=== PATIENT | female | born 1960 | race Caucasian/White ===

== ENCOUNTER 2020-05-25 06:59 | Emergency (ER) | payer OTHER ==
[~2020-05-25] VITALS: Ht 167.6 cm; Wt 71.0 kg
[2020-05-25 07:46] LABS: HEMATOCRIT 41.5 % (37.0-47.0); HEMOGLOBIN 13.5 g/dl (12.0-16.0); IMMATURE GRANULOCYTES 0.1 % (0.0-5.0); MEAN CELL VOLUME 87.6 fL CALC (80.0-100.0); MEAN CORPUSCULAR HGB 28.5 pG CALC (26.0-32.0); MEAN CORPUSCULAR HGB CONC 32.5 g/dL CAL (32.0-36.0); NEUT# 7.11 thou/uL (2.00-7.15); RED BLOOD COUNT 4.74 mill/uL (4.20-5.60); RED CELL DISTRI WIDTH 13.6 % (11.5-15.5)
[2020-05-25 07:49] LABS: URINE BILIRUBIN - DIPSTICK NEGATIVE (NEGATIVE); URINE BLOOD DIPSTICK NEGATIVE (NEGATIVE); URINE COLOR YELLOW; URINE GLUCOSE - DIPSTICK NEGATIVE (NEGATIVE); URINE KETONE 15 mg/dL (NEGATIVE); URINE LEUK ESTERASE NEGATIVE (NEGATIVE); URINE NITRITE - DIPSTICK NEGATIVE (Negative); URINE PH 7.5 (4.5-8.0); URINE PROTEIN - DIPSTICK TRACE mg/dL (NEG-TRACE); URINE UROBILINOGEN - DIPSTICK 0.2 E.U./dL (0.2)
[2020-05-25 08:01] LABS: ALBUMIN 4.8 g/dL (3.2-5.0); ALKALINE PHOSPHATASE 84 u/l (38-126); AMYLASE 41 u/l (30-110); ANION GAP 12 (6-22 (CALC)); BUN 18 mg/dL (8-23); BUN/CREATININE RATIO 24 (12-20 (CALC)); CARBON DIOXIDE 25 mmol/l (22-30); CHLORIDE 105 mmol/l (95-108); CREATININE 0.7 mg/dL (0.5-1.0); GFR > 60 ML/MIN (>=60 (CALC)); GFR FOR AFR.AMER. > 60 ML/MIN (>=60 (CALC)); LIPASE 90 u/l (23-300); POTASSIUM 3.8 mmol/l (3.5-5.1); SGOT/AST 30 u/l (9-36); SODIUM 138 mmol/l (137-146); TOTAL PROTEIN 7.8 g/dL (6.3-8.2)
[2020-05-25] MEDS ORDERED: PHENERGAN25 MG/TAB PO (08:38)
[2020-05-25 08:44] VITALS: BP 115/58
[2020-05-25] MEDS ORDERED: MELOXICAM15 MG PO (08:45)
[2020-05-25] MEDS ORDERED: ARMOUR THYRO90 MG PO (08:45)
[2020-05-25] MEDS ORDERED: TRAZODONE50 MG PO (08:46)
== END 2020-05-25 09:24 | disposition home or self-care (01) | DRG 392 ==
LOC: ED 06:59
DX: R11.2 Nausea with vomiting, unspecified (principal); R19.7 Diarrhea, unspecified; Z20.828 Contact with and (suspected) exposure to other viral communicable diseases

== ENCOUNTER 2022-01-04 22:06 | Emergency (ER) | payer OTHER ==
[~2022-01-04] VITALS: Ht 167.6 cm; Wt 73.0 kg
[~2022-01-04 22:06] MED LIST: ARMOUR THYRO90 MG PO; MELOXICAM15 MG PO; PHENERGAN25 MG/TAB PO; TRAZODONE50 MG PO
[2022-01-04] MEDS ORDERED: KEFLEX500 MG PO (22:29)
[2022-01-04 22:34] VITALS: BP 119/63
== END 2022-01-04 22:40 | disposition home or self-care (01) | DRG 605 ==
LOC: ED 22:06
PROC: 0HQGXZZ Repair Left Hand Skin, External Approach (ICD-10-PCS; principal; 2022-01-04)
DX: S61.412A Laceration without foreign body of left hand, initial encounter (principal); W27.2XXA Contact with scissors, initial encounter; Y93.G1 Activity, food preparation and clean up; Y92.009 Unspecified place in unspecified non-institutional (private) residence as the place of occurrence of the external cause

== ENCOUNTER 2022-05-18 06:45 | Emergency (ER) | payer OTHER ==
[~2022-05-18] VITALS: Ht 167.6 cm; Wt 65.0 kg
[~2022-05-18 06:45] MED LIST changes: +KEFLEX500 MG PO
[2022-05-18 07:39] LABS: HEMATOCRIT 39.7 % (37.0-47.0); HEMOGLOBIN 13.3 g/dl (12.0-16.0); IMMATURE GRANULOCYTES 0.6 % (0.0-5.0); MEAN CELL VOLUME 89.4 fL CALC (80.0-100.0); MEAN CORPUSCULAR HGB CONC 33.5 g/dL CAL (32.0-36.0); NEUT# 5.33 thou/uL (2.00-7.15); RED BLOOD COUNT 4.44 mill/uL (4.20-5.60); RED CELL DISTRI WIDTH 12.7 % (11.5-15.5)
[2022-05-18 07:55] LABS: ALKALINE PHOSPHATASE 63 u/l (38-126); BUN 19 mg/dL (8-23); BUN/CREATININE RATIO 29 (12-20 (CALC)); CARBON DIOXIDE 25 mmol/l (22-30); CHLORIDE 107 mmol/l (95-108); CREATININE 0.7 mg/dL (0.5-1.0); GFR FOR AFR.AMER. > 60 ML/MIN (>=60 (CALC)); GFR OTHER RACES > 60 ML/MIN (>=60 (CALC)); SGOT/AST 30 u/l (9-36); SODIUM 137 mmol/l (137-146); TOTAL PROTEIN 7.2 g/dL (6.3-8.2)
[2022-05-18 07:58] LABS: ANION GAP 8 (6-22 (CALC)); BILIRUBIN, TOTAL 1.3 mg/dL (0.0-1.4); POTASSIUM 3.4 mmol/l (3.5-5.1)
[2022-05-18] MEDS ORDERED: ZOFRAN4 MG/TAB PO (08:31)
[2022-05-18] MEDS ORDERED: PHENERGAN25 MG RE (08:31)
[2022-05-18] MEDS ORDERED: ZPAK PO (08:31)
[2022-05-18 09:33] VITALS: BP 113/60
== END 2022-05-18 09:33 | disposition home or self-care (01) | DRG 179 ==
LOC: ED 06:45
PROVIDERS: Family Medicine
DX: U07.1 COVID-19 (principal); R11.2 Nausea with vomiting, unspecified; R05.9 Cough, unspecified; E87.6 Hypokalemia

== ENCOUNTER 2022-05-25 07:23 | Emergency (ER) | payer OTHER ==
[~2022-05-25] VITALS: Ht 167.6 cm; Wt 65.5 kg
[~2022-05-25 07:23] MED LIST changes: +PHENERGAN25 MG RE; +ZOFRAN4 MG/TAB PO; +ZPAK PO
[2022-05-25 07:33] VITALS: BP 108/71
[2022-05-25 07:45] VITALS: BP 107/68
[2022-05-25 08:02] VITALS: BP 114/73
[2022-05-25 08:03] LABS: HEMOGLOBIN 12.1 g/dl (12.0-16.0); IMMATURE GRANULOCYTES 0.1 % (0.0-5.0); MEAN CELL VOLUME 91.4 fL CALC (80.0-100.0); MEAN CORPUSCULAR HGB 29.9 pG CALC (26.0-32.0); MEAN CORPUSCULAR HGB CONC 32.7 g/dL CAL (32.0-36.0); NEUT# 7.41 thou/uL (2.00-7.15); RED BLOOD COUNT 4.05 mill/uL (4.20-5.60)
[2022-05-25 08:14] LABS: ALBUMIN 4.1 g/dL (3.2-5.0); ALKALINE PHOSPHATASE 58 u/l (38-126); ANION GAP 8 (6-22 (CALC)); BILIRUBIN, TOTAL 1.6 mg/dL (0.0-1.4); BUN 13 mg/dL (8-23); BUN/CREATININE RATIO 19 (12-20 (CALC)); CARBON DIOXIDE 28 mmol/l (22-30); CHLORIDE 107 mmol/l (95-108); CREATININE 0.7 mg/dL (0.5-1.0); GFR FOR AFR.AMER. > 60 ML/MIN (>=60 (CALC)); GFR OTHER RACES > 60 ML/MIN (>=60 (CALC)); LIPASE 40 u/l (23-300); SGOT/AST 17 u/l (9-36); SODIUM 139 mmol/l (137-146); TOTAL PROTEIN 6.8 g/dL (6.3-8.2)
[2022-05-25 08:15] VITALS: BP 105/65
[2022-05-25 08:19] LABS: POTASSIUM 4.1 mmol/l (3.5-5.1)
[2022-05-25 08:32] LABS: URINE BILIRUBIN - DIPSTICK NEGATIVE (NEGATIVE); URINE BLOOD DIPSTICK NEGATIVE (NEGATIVE); URINE COLOR YELLOW; URINE GLUCOSE - DIPSTICK NEGATIVE (NEGATIVE); URINE KETONE NEGATIVE (NEGATIVE); URINE LEUK ESTERASE NEGATIVE (NEGATIVE); URINE PH 8.5 (4.5-8.0); URINE PROTEIN - DIPSTICK NEGATIVE (NEG-TRACE); URINE SPECIFIC GRAVITY 1.015; URINE UROBILINOGEN - DIPSTICK 0.2 E.U./dL (0.2)
[2022-05-25 08:33] LABS: URINE NITRITE - DIPSTICK NEGATIVE (Negative)
[2022-05-26] MEDS ORDERED: ESTRADIOL10 MCG VA (12:04)
== END 2022-05-25 09:21 | disposition home or self-care (01) | DRG 392 ==
LOC: ED 07:23
PROVIDERS: Family Medicine
DX: K59.00 Constipation, unspecified (principal)
CPT/HCPCS: Q9967

== ENCOUNTER 2022-05-25 20:47 | Observation (INO) | payer OTHER ==
[~2022-05-25] VITALS: Ht 167.6 cm; Wt 66.0 kg
[2022-05-25 21:00] VITALS: BP 137/78
[2022-05-25 21:34] LABS: HEMATOCRIT 37.5 % (37.0-47.0); HEMOGLOBIN 12.3 g/dl (12.0-16.0); IMMATURE GRANULOCYTES 0.1 % (0.0-5.0); MEAN CORPUSCULAR HGB 29.9 pG CALC (26.0-32.0); MEAN CORPUSCULAR HGB CONC 32.8 g/dL CAL (32.0-36.0); NEUT# 8.33 thou/uL (2.00-7.15); RED BLOOD COUNT 4.12 mill/uL (4.20-5.60); RED CELL DISTRI WIDTH 13.1 % (11.5-15.5)
[2022-05-25 21:49] LABS: ALBUMIN 4.1 g/dL (3.2-5.0); ALKALINE PHOSPHATASE 64 u/l (38-126); ANION GAP 9 (6-22 (CALC)); BILIRUBIN, TOTAL 1.2 mg/dL (0.0-1.4); BUN 16 mg/dL (8-23); BUN/CREATININE RATIO 20 (12-20 (CALC)); CARBON DIOXIDE 27 mmol/l (22-30); CHLORIDE 107 mmol/l (95-108); CREATININE 0.8 mg/dL (0.5-1.0); GFR FOR AFR.AMER. > 60 ML/MIN (>=60 (CALC)); GFR OTHER RACES > 60 ML/MIN (>=60 (CALC)); POTASSIUM 3.8 mmol/l (3.5-5.1); SGOT/AST 19 u/l (9-36); SODIUM 139 mmol/l (137-146); TOTAL PROTEIN 7.2 g/dL (6.3-8.2)
--- NOTE | 2022-05-25 22:25 | NUR ---
PT CAME IN - INITIAL CARE AND TREATMENT BY NESTOR LUCIANO. PT GIVEN MEDS, FOLLOWING TORADOL, PT STILL REPORTS 6/10 PAIN SCALE. XRAY JUST COMPLETED, PT IN RESTROOM, WILL CONTINUE TO MONITOR WHILE AWAITING RESULTS.
--- NOTE | 2022-05-25 22:59 | NUR ---
PT REPORTED 3/10 PAIN FOLLOWING THE MORPHINE. AWAITING ROOM ASSIGNMENT - NOTIFIED PT, WILL CONTINUE TO MONITOR.
--- NOTE | 2022-05-25 23:08 | NUR ---
ICE [employer]IPS PROVIDED PER PT'S REQUEST
--- NOTE | 2022-05-25 23:36 | NUR ---
REPORT CALLED TO [facility] - NURSE AVINASH. PT BEING TRANSFERRED UPSTAIRS VIA WHEELCHAIR BY ZHANE BAEZ. PT STABLE.
--- NOTE | 2022-05-25 23:39 | NUR ---
PATIENT TRASNPORTED VIA WHEELCHAIR, REPORT GIVEN BY ED NURSE YOMI, C/O ABDOMINAL PAINA DN CONSTIPATION, LAST DOCUMENTED BM 05/22 " wednesday", PATIENT HAD TAKEN MAD CITRATE AND ENEMA NO RELIEF. PATIENT WAS ORIENTED TO ROOM AND CALL LIGHT SYSTEM, DIET REINFORCED CURRENTLY ON CLEAR LIQUID DIET, VIATL SIGNS TAKEN, PATIENT ON ISOLATION FOPR COVID 19, BREATHING UNLABORED CALL LIGHT IN REACH./
--- NOTE | 2022-05-26 01:16 | NUR ---
SOAP TOM ENEMA DONE AT THIS TIME, PATIENT TOLERATED PROCEDURE, PATIENT TO BED SIDE COMODE, NO BM NOTED YET JUST ENEMA SOLUTION.
[2022-05-26 01:50] VITALS: BP 120/59
--- NOTE | 2022-05-26 02:55 | NUR ---
ENEMA CONTINUED AT THSI TIME, PATIENT STILL HAVING ABDOMINAL CRAMPING.
[2022-05-26 05:00] VITALS: BP 134/75
[2022-05-26 05:24] LABS: HEMATOCRIT 37.5 % (37.0-47.0); HEMOGLOBIN 12.5 g/dl (12.0-16.0); MEAN CELL VOLUME 88.9 fL CALC (80.0-100.0); MEAN CORPUSCULAR HGB 29.6 pG CALC (26.0-32.0); MEAN CORPUSCULAR HGB CONC 33.3 g/dL CAL (32.0-36.0); RED BLOOD COUNT 4.22 mill/uL (4.20-5.60); RED CELL DISTRI WIDTH 12.9 % (11.5-15.5)
[2022-05-26 05:34] LABS: ANION GAP 9 (6-22 (CALC)); BUN 19 mg/dL (8-23); BUN/CREATININE RATIO 29 (12-20 (CALC)); CARBON DIOXIDE 26 mmol/l (22-30); CHLORIDE 106 mmol/l (95-108); CREATININE 0.7 mg/dL (0.5-1.0); GFR FOR AFR.AMER. > 60 ML/MIN (>=60 (CALC)); GFR OTHER RACES > 60 ML/MIN (>=60 (CALC)); MAGNESIUM 3.4 mg/dL (1.6-2.3); POTASSIUM 3.9 mmol/l (3.5-5.1); SODIUM 137 mmol/l (137-146)
--- NOTE | 2022-05-26 05:40 | NUR ---
PATIENT RESTING IN BED, SIDE LYING POSITION, NOT IN DISTRESS CALL LIGHT IN REACH.
--- NOTE | 2022-05-26 06:36 | NUR ---
PRN BENTYL IM GIVEN FOR ABDOMINAL SPASM AND MOM GIVEN AT THIS TIME.
--- NOTE | 2022-05-26 07:00 | NUR ---
RECEIVE REPORT FROM GURJIT BAEZ.
[2022-05-26 07:27] VITALS: BP 112/58
[2022-05-26 08:00] VITALS: BP 112/58
--- NOTE | 2022-05-26 08:00 | NUR ---
PATIENT ALERT AND ORIENTED X3. VITAL SIGN STABLE AT THIS TIME. PATIENT RESTING IN BED PLEASENT. PATIENT IS EDUCATED ABOUD MEDICATIONS AN NURSING PLAN FOR TODAY. PATIENT REFER UNDERSTAND. FALL AND SAFETY PRECAUTIONS IN PLACE. CALL LIGHT IS WITHIN REACH.
[2022-05-26] MEDS ORDERED: ESTRADIOL10 MCG VA (12:04)
--- NOTE | 2022-05-26 12:23 | NUR ---
PATIENT AMBULATING WITH STAFF
--- NOTE | 2022-05-26 12:27 | NUR ---
PATIENT STABLE AT THIS TIME. RESTING IN BED ACCOMPANIED FOR FAMILY MEMBER.
[2022-05-26 15:26] VITALS: BP 102/62
--- NOTE | 2022-05-26 16:33 | NUR ---
PATIENT STABLE AT THIS TIME. RESTING IN BED
--- NOTE | 2022-05-26 19:30 | NUR ---
ALERT AND ORIENTED X4 ABDOMIN MILDLY DISTENDED NO NAUSEA AND TENDER ON PALPATION AT 3 OUT OF 10
[2022-05-26 19:48] VITALS: BP 90/53
--- NOTE | 2022-05-26 20:36 | NUR ---
COMPLAIN OF NAUSEA AND ABDOMIN CRAMPING TEMP 100.5 MEDICATED WITH TORADOL FOR RELEF OF FEVER AND PAIN
--- NOTE | 2022-05-26 21:27 | NUR ---
RESTING QUIETLY NO DISTRESS POSTURE RELAXED WILL CONTINUE TO MONITOR
--- NOTE | 2022-05-26 23:52 | NUR ---
PATIENT AWAKE AND ALERT CONTINUE TO COMPALAIN OF NAUSEA AND ABDOMINAL PAIN. WILL CONTINUE TO MONITOR
--- NOTE | 2022-05-27 03:46 | NUR ---
UP TO BSC VOIDED NÉSTOR URINE SMALL AMOUNT SOFT BROWN STOOL NOTED MEDICATED FOR COMPLAINT OF CRAMPING ABDOMINAL PAIN AND NAUSEA WITHOUT EMESIS. RESPIRATIONS EVEN AND UNLABORED.
[2022-05-27 04:21] VITALS: BP 95/43
[2022-05-27 06:05] LABS: HEMATOCRIT 31.6 % (37.0-47.0); HEMOGLOBIN 10.8 g/dl (12.0-16.0); MEAN CORPUSCULAR HGB 30.8 pG CALC (26.0-32.0); MEAN CORPUSCULAR HGB CONC 34.2 g/dL CAL (32.0-36.0); RED BLOOD COUNT 3.51 mill/uL (4.20-5.60); RED CELL DISTRI WIDTH 13.1 % (11.5-15.5)
[2022-05-27 06:46] LABS: ANION GAP 10 (6-22 (CALC)); BUN 21 mg/dL (8-23); BUN/CREATININE RATIO 31 (12-20 (CALC)); CARBON DIOXIDE 23 mmol/l (22-30); CHLORIDE 104 mmol/l (95-108); CREATININE 0.7 mg/dL (0.5-1.0); GFR FOR AFR.AMER. > 60 ML/MIN (>=60 (CALC)); GFR OTHER RACES > 60 ML/MIN (>=60 (CALC)); MAGNESIUM 2.8 mg/dL (1.6-2.3); POTASSIUM 3.7 mmol/l (3.5-5.1); SODIUM 134 mmol/l (137-146)
--- NOTE | 2022-05-27 07:00 | NUR ---
REPORT RECEIVE FROM HILARIO BAEZ.
[2022-05-27 07:23] VITALS: BP 95/53
[2022-05-27 08:00] VITALS: BP 95/53
--- NOTE | 2022-05-27 08:00 | NUR ---
PATIENT ALERT AND ORIENTED X3. PATIENT REFER NAUCEAS AND PAIN. MEDICATIONS DONE. PATIENT IS EDUCATED ABOUD MEDICATIONS AND NURSING PLAN FOR TODAY. PT DONT NOT WANT CONNECTED IV FLUID SHE REFER NEED GO TO THE BEDSIDE COMMON FRECUENLY. PT IS REEDUCATED ABOUD TREATMENT. SHE REFER UNDERSTAND.
--- NOTE | 2022-05-27 12:52 | NUR ---
PATIENT RESTING IN BED, STABLE AT THIS TIME. PT WITH DISCHARGED PLAN FOR TODAY
[2022-05-27] MEDS ORDERED: CIPROFLOXACN500 MG PO (14:34)
[2022-05-27] MEDS ORDERED: METRONIDAZOLE500 MG PO (14:35)
[2022-05-27] MEDS ORDERED: DICYCLOMINE HCL10 MG PO (14:36)
[2022-05-27] MEDS ORDERED: PERCOCET 5/325M1 TAB PO (14:36)
--- NOTE | 2022-05-27 14:50 | NUR ---
Discharge instructions given. Patient verbalizes understanding of same. Discharged in stable condition via Wheelchair to Home with *Other. All belongings sent with pt.
== END 2022-05-27 15:38 | disposition home or self-care (01) | DRG 391 ==
LOC: ED 20:47 → MS2 22:45
PROVIDERS: Family Medicine; ADMIT Hospitalist; ATTEND Hospitalist
DX: K57.32 Diverticulitis of large intestine without perforation or abscess without bleeding (principal); U07.1 COVID-19; K59.00 Constipation, unspecified; E03.9 Hypothyroidism, unspecified
CPT/HCPCS: G0378; J1650; Q9967; S0164

== ENCOUNTER 2022-05-29 13:46 | Inpatient (IN) | payer OTHER ==
[~2022-05-29] VITALS: Ht 167.6 cm; Wt 67.0 kg
[~2022-05-29 13:46] MED LIST changes: +CIPROFLOXACN500 MG PO; +DICYCLOMINE HCL10 MG PO; +ESTRADIOL10 MCG VA; +METRONIDAZOLE500 MG PO; +PERCOCET 5/325M1 TAB PO
[2022-05-29 14:18] VITALS: BP 111/62
[2022-05-29 18:40] VITALS: BP 126/75
[2022-05-29 18:57] VITALS: BP 126/75
[2022-05-30] VITALS (7 sets, daily range): BP systolic 108–137; BP diastolic 56–73
[2022-05-30 05:13] LABS: HEMATOCRIT 30.7 % (37.0-47.0); HEMOGLOBIN 10.4 g/dl (12.0-16.0); IMMATURE GRANULOCYTES 3.4 % (0.0-5.0); MEAN CELL VOLUME 88.5 fL CALC (80.0-100.0); MEAN CORPUSCULAR HGB CONC 33.9 g/dL CAL (32.0-36.0); NEUT# 2.77 thou/uL (2.00-7.15); RED BLOOD COUNT 3.47 mill/uL (4.20-5.60)
[2022-05-30 05:28] LABS: ANION GAP 9 (6-22 (CALC)); BUN 6 mg/dL (8-23); BUN/CREATININE RATIO 8 (12-20 (CALC)); CARBON DIOXIDE 25 mmol/l (22-30); CHLORIDE 106 mmol/l (95-108); CREATININE 0.7 mg/dL (0.5-1.0); GFR FOR AFR.AMER. > 60 ML/MIN (>=60 (CALC)); GFR OTHER RACES > 60 ML/MIN (>=60 (CALC)); POTASSIUM 3.5 mmol/l (3.5-5.1); SODIUM 136 mmol/l (137-146)
[2022-05-30] MEDS ORDERED: MELOXICAM7.5 MG PO (13:27)
[2022-05-31 03:46] VITALS: BP 108/63
[2022-05-31 04:00] VITALS: BP 108/63
[2022-05-31 05:18] LABS: HEMATOCRIT 28.1 % (37.0-47.0); HEMOGLOBIN 9.6 g/dl (12.0-16.0); MEAN CELL VOLUME 88.4 fL CALC (80.0-100.0); MEAN CORPUSCULAR HGB 30.2 pG CALC (26.0-32.0); MEAN CORPUSCULAR HGB CONC 34.2 g/dL CAL (32.0-36.0); RED BLOOD COUNT 3.18 mill/uL (4.20-5.60); RED CELL DISTRI WIDTH 12.9 % (11.5-15.5)
[2022-05-31 05:32] LABS: ANION GAP 9 (6-22 (CALC)); BUN 3 mg/dL (8-23); BUN/CREATININE RATIO 5 (12-20 (CALC)); CARBON DIOXIDE 25 mmol/l (22-30); CHLORIDE 107 mmol/l (95-108); CREATININE 0.6 mg/dL (0.5-1.0); GFR FOR AFR.AMER. > 60 ML/MIN (>=60 (CALC)); GFR OTHER RACES > 60 ML/MIN (>=60 (CALC)); SODIUM 137 mmol/l (137-146)
[2022-05-31 05:41] LABS: MAGNESIUM 1.9 mg/dL (1.6-2.3)
[2022-05-31 06:45] VITALS: BP 124/59
[2022-05-31 14:45] VITALS: BP 105/60
[2022-05-31 18:59] VITALS: BP 105/70
[2022-06-01 04:44] VITALS: BP 120/65
[2022-06-01 05:32] LABS: HEMATOCRIT 30.8 % (37.0-47.0); HEMOGLOBIN 10.3 g/dl (12.0-16.0); MEAN CELL VOLUME 89.8 fL CALC (80.0-100.0); MEAN CORPUSCULAR HGB CONC 33.4 g/dL CAL (32.0-36.0); RED BLOOD COUNT 3.43 mill/uL (4.20-5.60); RED CELL DISTRI WIDTH 13.2 % (11.5-15.5)
[2022-06-01 05:44] LABS: ANION GAP 8 (6-22 (CALC)); BUN 2 mg/dL (8-23); BUN/CREATININE RATIO 3 (12-20 (CALC)); CARBON DIOXIDE 27 mmol/l (22-30); CHLORIDE 107 mmol/l (95-108); CREATININE 0.7 mg/dL (0.5-1.0); GFR FOR AFR.AMER. > 60 ML/MIN (>=60 (CALC)); GFR OTHER RACES > 60 ML/MIN (>=60 (CALC)); MAGNESIUM 1.8 mg/dL (1.6-2.3); POTASSIUM 3.8 mmol/l (3.5-5.1); SODIUM 138 mmol/l (137-146)
[2022-06-01 07:16] VITALS: BP 130/66
[2022-06-01 20:42] VITALS: BP 100/58
[2022-06-02] VITALS (7 sets, daily range): BP systolic 103–125; BP diastolic 60–79
[2022-06-03 04:31] LABS: HEMATOCRIT 32.1 % (37.0-47.0); HEMOGLOBIN 10.7 g/dl (12.0-16.0); IMMATURE GRANULOCYTES 3.7 % (0.0-5.0); MEAN CELL VOLUME 88.9 fL CALC (80.0-100.0); MEAN CORPUSCULAR HGB 29.6 pG CALC (26.0-32.0); MEAN CORPUSCULAR HGB CONC 33.3 g/dL CAL (32.0-36.0); NEUT# 4.06 thou/uL (2.00-7.15); RED BLOOD COUNT 3.61 mill/uL (4.20-5.60); RED CELL DISTRI WIDTH 13.8 % (11.5-15.5)
[2022-06-03 04:33] VITALS: BP 123/70
[2022-06-03 04:45] LABS: ANION GAP 8 (6-22 (CALC)); CARBON DIOXIDE 27 mmol/l (22-30); CHLORIDE 108 mmol/l (95-108); CREATININE 0.7 mg/dL (0.5-1.0); GFR FOR AFR.AMER. > 60 ML/MIN (>=60 (CALC)); GFR OTHER RACES > 60 ML/MIN (>=60 (CALC)); POTASSIUM 3.6 mmol/l (3.5-5.1); SODIUM 139 mmol/l (137-146)
[2022-06-03 04:58] LABS: BUN 2 mg/dL (8-23); BUN/CREATININE RATIO 3 (12-20 (CALC))
[2022-06-03 10:51] LABS: C. DIFFICILE TOXIN A&B NEGATIVE (NEGATIVE)
[2022-06-03 18:54] VITALS: BP 95/53
[2022-06-03 19:08] VITALS: BP 95/53
[2022-06-04 03:30] VITALS: BP 119/70
[2022-06-04 04:16] VITALS: BP 119/70
[2022-06-04 04:56] LABS: HEMATOCRIT 30.8 % (37.0-47.0); HEMOGLOBIN 10.1 g/dl (12.0-16.0); MEAN CELL VOLUME 89.5 fL CALC (80.0-100.0); MEAN CORPUSCULAR HGB 29.4 pG CALC (26.0-32.0); MEAN CORPUSCULAR HGB CONC 32.8 g/dL CAL (32.0-36.0); RED BLOOD COUNT 3.44 mill/uL (4.20-5.60); RED CELL DISTRI WIDTH 13.9 % (11.5-15.5)
[2022-06-04 05:08] LABS: ANION GAP 7 (6-22 (CALC)); BUN 2 mg/dL (8-23); BUN/CREATININE RATIO 3 (12-20 (CALC)); CARBON DIOXIDE 27 mmol/l (22-30); CHLORIDE 110 mmol/l (95-108); CREATININE 0.7 mg/dL (0.5-1.0); GFR FOR AFR.AMER. > 60 ML/MIN (>=60 (CALC)); GFR OTHER RACES > 60 ML/MIN (>=60 (CALC)); MAGNESIUM 2.1 mg/dL (1.6-2.3); POTASSIUM 3.7 mmol/l (3.5-5.1); SODIUM 140 mmol/l (137-146)
[2022-06-04 06:05] VITALS: BP 101/57
[2022-06-04] MEDS ORDERED: AMOX/K CLAV875 M1 PO (10:17)
[2022-06-08] MEDS ORDERED: ONDANSETRON4 MG PO (12:11)
[2022-06-08] MEDS ORDERED: METRONIDAZOLE250 MG PO (12:11)
== END 2022-06-04 12:06 | disposition home or self-care (01) | DRG 385 ==
LOC: MS2 13:46
PROVIDERS: Hospitalist; ADMIT Surgery; ATTEND Surgery
PROC: 0DBL8ZX Excision of Transverse Colon, Via Natural or Artificial Opening Endoscopic, Diagnostic (ICD-10-PCS; principal; 2022-06-01)
DX: K50.118 Crohn's disease of large intestine with other complication (principal); U07.1 COVID-19; K57.32 Diverticulitis of large intestine without perforation or abscess without bleeding; D64.9 Anemia, unspecified; E03.9 Hypothyroidism, unspecified; G47.00 Insomnia, unspecified
CPT/HCPCS: J1650

== ENCOUNTER 2022-08-04 06:51 | Day surgery (SDC) | payer OTHER ==
[~2022-08-04] VITALS: Ht 167.6 cm; Wt 60.8 kg
[~2022-08-04 06:51] MED LIST changes: +AMOX/K CLAV875 M1 PO; +CALCIUM600 M1 PO; +DOCUSATE CAL240 MG PO; +EFFEXOR XR37.5 MG PO; +GINGER ROOT550 MG PO; +K2 PLUS D31 TAB PO; +MAGNESIUM250 M1 PO; +MAXALT10 MG PO; +MELOXICAM7.5 MG PO; +METRONIDAZOLE250 MG PO; +MULTI VIT PO; +ONDANSETRON4 MG PO; +PROTONICS PO; +TYLENOL500 MG PO; +ZINC50 M1 PO
[2022-08-04 09:03] VITALS: BP 92/60
== END 2022-08-04 08:58 | disposition home or self-care (01) | DRG 392 ==
LOC: ORM 06:51 → ENDO 06:51 → ORM 08:00 → ENDO 08:58
PROVIDERS: ATTEND Surgery
PROC: 0DJD8ZZ Inspection of Lower Intestinal Tract, Via Natural or Artificial Opening Endoscopic (ICD-10-PCS; principal; 2022-08-04)
DX: K57.30 Diverticulosis of large intestine without perforation or abscess without bleeding (principal); I10 Essential (primary) hypertension; E11.9 Type 2 diabetes mellitus without complications

== ENCOUNTER 2023-02-17 06:34 | Day surgery (SDC) | payer OTHER ==
[~2023-02-17] VITALS: Ht 167.6 cm; Wt 58.5 kg
[2023-02-17 12:52] VITALS: BP 101/65
== END 2023-02-17 10:47 | disposition home or self-care (01) | DRG 93 ==
LOC: ORM 06:34
PROVIDERS: ATTEND Physical Medicine & Rehabilitation
DX: G89.4 Chronic pain syndrome (principal); M17.0 Bilateral primary osteoarthritis of knee; M62.838 Other muscle spasm; M54.16 Radiculopathy, lumbar region
CPT/HCPCS: J1100; Q9967

== ENCOUNTER 2023-12-08 06:30 | Day surgery (SDC) | payer OTHER ==
[~2023-12-08] VITALS: Ht 167.6 cm; Wt 61.2 kg
[~2023-12-08 06:30] MED LIST changes: +FLEXERIL5 M1 PO; +MELOXICAM10 MG PO; +TOPAMAX50 M1 PO
[2023-12-08 09:53] VITALS: BP 113/63
== END 2023-12-08 09:20 | disposition home or self-care (01) | DRG 552 ==
LOC: ORM 06:30
PROVIDERS: ATTEND Student in an Organized Health Care Education/Training Program
DX: M46.1 Sacroiliitis, not elsewhere classified (principal); G89.4 Chronic pain syndrome; M53.3 Sacrococcygeal disorders, not elsewhere classified

== ENCOUNTER 2023-12-15 06:55 | Day surgery (SDC) | payer OTHER ==
[~2023-12-15] VITALS: Ht 167.6 cm; Wt 61.2 kg
[2023-12-15 10:54] VITALS: BP 105/65
== END 2023-12-15 08:30 | disposition home or self-care (01) | DRG 93 ==
LOC: ORM 06:55
PROVIDERS: ATTEND Student in an Organized Health Care Education/Training Program
DX: G89.4 Chronic pain syndrome (principal); M17.0 Bilateral primary osteoarthritis of knee; M62.838 Other muscle spasm; M54.16 Radiculopathy, lumbar region
CPT/HCPCS: J7325; Q9966

== ENCOUNTER 2024-01-12 06:55 | Day surgery (SDC) | payer OTHER ==
[~2024-01-12] VITALS: Ht 167.6 cm; Wt 61.7 kg
[2024-01-12] MEDS ORDERED: SODIUM CHLORIDE 0.9% 10 ML SYR ONE (08:03)
[2024-01-12] MEDS ORDERED: PERCOCET1 TA2 PO (08:36)
[2024-01-12] MEDS ORDERED: TIZANIDINE4 MG PO (08:41)
[2024-01-12] MEDS ORDERED: LIDOCAINE MPF 1% (10 MG/ML) 5 ML VIAL ONE (10:23)
[2024-01-12] MEDS ORDERED: BUPIVACAINE HCL PF 0.5 % 50 MG/10 ML SDV ONE (10:24)
[2024-01-12 10:38] VITALS: BP 123/55
== END 2024-01-12 10:30 | disposition home or self-care (01) | DRG 93 ==
LOC: ORM 06:55
PROVIDERS: ATTEND Student in an Organized Health Care Education/Training Program
DX: G89.4 Chronic pain syndrome (principal); M17.0 Bilateral primary osteoarthritis of knee; M54.16 Radiculopathy, lumbar region; M46.1 Sacroiliitis, not elsewhere classified

== ENCOUNTER 2024-06-21 05:22 | Emergency (ER) | payer OTHER ==
[~2024-06-21] VITALS: Ht 167.6 cm; Wt 65.0 kg
[~2024-06-21 05:22] MED LIST changes: +PERCOCET1 TA2 PO; +TIZANIDINE4 MG PO
[2024-06-21 05:36] VITALS: BP 116/92
[2024-06-21] MEDS ORDERED: ZOFRAN4 MG/TAB PO (05:41)
[2024-06-21] MEDS ORDERED: BAYER ASPIRIN E81 MG PO (05:43)
[2024-06-21 05:45] VITALS: BP 130/60
[2024-06-21] MEDS ORDERED: METOCLOPRAMIDE HCL 10 MG/2 ML SDV IV ONE (05:45)
[2024-06-21] MEDS ORDERED: MORPHINE SULFATE 4 MG/ML VIAL IV ONE (05:45)
[2024-06-21] MEDS ORDERED: DiphenhydrAMINE HCL 50 MG/ML SDV IV ONE ×2 (05:45→07:00)
[2024-06-21 06:35] VITALS: BP 117/65
[2024-06-21 06:57] LABS: URINE BILIRUBIN - DIPSTICK Negative (NEGATIVE); URINE BLOOD DIPSTICK Negative (NEGATIVE); URINE GLUCOSE - DIPSTICK Negative (NEGATIVE); URINE KETONE Trace mg/dL (NEGATIVE); URINE LEUK ESTERASE Negative (NEGATIVE); URINE NITRITE - DIPSTICK Negative (Negative); URINE PH 8.5 (4.5-8.0); URINE PROTEIN - DIPSTICK Negative (NEG-TRACE); URINE SPECIFIC GRAVITY 1.015
[2024-06-21 06:58] LABS: BASO% 0.3 % (0-3); EOS% 1.1 % (0-8); IMMATURE GRANULOCYTES 0.3 % (0.0-5.0); LYMPH% 7.3 % (15-41); MEAN CORPUSCULAR HGB 29.7 pG CALC (26.0-32.0); MEAN CORPUSCULAR HGB CONC 33.7 g/dL CAL (32.0-36.0); MONO% 6.5 % (2-13); NEUT# 7.67 thou/uL (2.00-7.15); NEUT% 84.5 % (42-76); RED BLOOD COUNT 3.17 mill/uL (4.20-5.60); RED CELL DISTRI WIDTH 13.4 % (11.5-15.5)
[2024-06-21 06:59] LABS: URINE COLOR Yellow
[2024-06-21 07:00] LABS: HEMATOCRIT 27.9 % (37.0-47.0); HEMOGLOBIN 9.4 g/dl (12.0-16.0)
[2024-06-21 07:03] VITALS: BP 101/71
[2024-06-21] MEDS ORDERED: ALPRAZolam 0.5 MG/TAB PO ONE (07:10)
[2024-06-21 07:16] LABS: CREATININE 0.6 mg/dL (0.5-1.0); POTASSIUM 4.1 mmol/l (3.5-5.1); TOTAL PROTEIN 6.9 g/dL (6.3-8.2)
[2024-06-21 07:30] VITALS: BP 96/58
[2024-06-21 07:42] VITALS: BP 96/58
== END 2024-06-21 07:58 | disposition home or self-care (01) | DRG 103 ==
LOC: ED 05:22
PROVIDERS: Emergency Medicine
DX: R51.9 Headache, unspecified (principal); Z96.652 Presence of left artificial knee joint

== ENCOUNTER 2024-11-08 06:19 | Day surgery (SDC) | payer OTHER ==
[~2024-11-08] VITALS: Ht 167.6 cm; Wt 63.5 kg
[~2024-11-08 06:19] MED LIST changes: +BACTRIM DS1 TAB PO; +BAYER ASPIRIN E81 MG PO
[2024-11-08] MEDS ORDERED: SODIUM CHLORIDE 0.9% 10 ML SYR ONE (06:38)
[2024-11-08] MEDS ORDERED: DICLOFENAC SODI75 MG PO (06:43)
[2024-11-08] MEDS ORDERED: METHOCARBAMOL500 MG PO (06:44)
[2024-11-08] MEDS ORDERED: LYRICA75 MG PO (06:44)
[2024-11-08] MEDS ORDERED: LIDOCAINE HCL 1% (10MG/ML) 100 MG/10 ML MDV ONE (07:02)
[2024-11-08] MEDS ORDERED: DEXAMETHASONE SODIUM PHOSPHATE PF 10 MG/ML SDV ONE (07:02)
[2024-11-08] MEDS ORDERED: SODIUM CHLORIDE 20 ML/VIAL SDV ONE (07:04)
[2024-11-08] MEDS ORDERED: Iopamidol 61% 5 ML SYR IV ONE (07:04)
[2024-11-08 08:45] VITALS: BP 106/67
== END 2024-11-08 08:25 | disposition home or self-care (01) | DRG 552 ==
LOC: ORM 06:19
PROVIDERS: ATTEND Student in an Organized Health Care Education/Training Program
DX: M54.16 Radiculopathy, lumbar region (principal); G89.4 Chronic pain syndrome; M17.0 Bilateral primary osteoarthritis of knee; M62.838 Other muscle spasm; M46.1 Sacroiliitis, not elsewhere classified; M54.9 Dorsalgia, unspecified
CPT/HCPCS: J1100; Q9967